=== PATIENT | male | born 1970 | race Caucasian/White ===

== ENCOUNTER 2025-02-01 13:06 | Inpatient (IN) | payer OTHER ==
[2025-02-01] MEDS ORDERED: Nitroglycerin 0.4 MG TAB 1 EACH ONE (15:08)
[2025-02-01 16:00] LABS: #Basophils 0.05 10x3/uL (0.0-0.2); #Eosinophils 0.24 10x3/uL (0.0-0.7); #Monocytes 0.78 10x3/uL (0.11-0.59); #Neutrophils 3.39 10x3/uL (1.40-6.50); %Basophils 0.8 % (0.0-1.0); %Eosinophils 4.0 % (0.0-10.0); %Lymphocytes 25.7 % (21.0-51.0); %Monocytes 13.0 % (0.0-10.0); %Neutrophils 56.3 % (42.0-75.0); Hematocrit 39.3 % (42.0-52.0); Hemoglobin 12.9 g/dL (14.0-18.0); Mean Corpuscular Hemoglobin 28.7 pg (27.0-31.0); Mean Corpuscular Volume 87.3 fL (78.0-98.0); Platelet Count 222 10x3/uL (130-400); Red Blood Cell (RBC) Count 4.50 mill/uL (4.70-6.10); White Blood Cell (WBC) Count 6.02 10x3/uL (4.8-10.8)
[2025-02-01 16:20] LABS: ALT (SGPT) 18 U/L (Less than 45); AST (SGOT) 28 U/L (11-34); Albumin 4.3 g/dL (3.1-4.5); Alkaline Phosphatase 75 U/L (40-110); Anion Gap 13 mmol/L (10-20); BUN (Urea Nitrogen) 21 mg/dL (8.4-25.7); Bilirubin, Total 0.5 mg/dL (0.3-1.2); Calc. Creatinine Clearance 0 mL/min (70-130); Calcium 9.2 mg/dL (7.8-10.44); Carbon Dioxide 23 mmol/L (22-29); Chloride 106 mmol/L (98-107); Globulin 3.0 g/dL (2.4-3.5); Glucose 91 mg/dL (70-105); Potassium 4.4 mmol/L (3.5-5.1); Sodium 138 mmol/L (136-145)
[2025-02-01] MEDS ORDERED: Melatonin 3 MG TAB PO PRN (17:37)
[2025-02-01] MEDS ORDERED: Acetaminophen 325 MG TAB PO PRN (17:37)
[2025-02-01 21:48] VITALS: BMI 24.7
[2025-02-01] MEDS: Famotidine 20 MG TAB PO SCH (22:03)
[2025-02-01] MEDS: Ketorolac Tromethamine 30 MG (1 mL) VIAL IVP SCH (22:27)
[2025-02-02] MEDS: Nitroglycerin 0.4 MG TAB (25 Tab Bottle) SL PRN (00:06)
[2025-02-02] MEDS: Nitroglycerin 2% Ointment 1 INCH/1 GM Packet TOP SCH ×2 (01:00→10:25)
[2025-02-02 04:51] LABS: Cardiac Risk 3.5 (Less than 4.5); Cholesterol 113.0 mg/dl (< 200 Desired); HDL Cholesterol 32.0 mg/dL (>60 Neg Risk); LDL Cholesterol, Calculated 55.0 mg/dL; Triglycerides 131.0 mg/dL (Less than 150)
[2025-02-02] MEDS ORDERED: Nitroglycerin 2% Ointment 1 INCH/1 GM Packet TOP SCH (09:00)
[2025-02-02] MEDS: Carvedilol 6.25 MG TAB PO SCH (11:54)
[2025-02-02] MEDS: FLU (Fluarix Triv) 25-26 (6MOS UP)/PF 45 MCG/0.5 ML Syringe IM ONE (11:54)
[2025-02-02] MEDS: Aspirin Chewable 81 MG TAB PO SCH (11:54)
[2025-02-02] MEDS: Isosorbide Mononitrate 30 MG ER.TAB.S PO SCH (14:13)
[2025-02-02] MEDS: Lisinopril 2.5 MG TAB PO SCH (14:53)
[2025-02-02] MEDS: Ketorolac Tromethamine 30 MG (1 mL) VIAL IVP SCH (21:49)
[2025-02-03 05:04] LABS: #Basophils 0.03 10x3/uL (0.0-0.2); #Eosinophils Less than 0.03 10x3/uL (0.0-0.7); #Monocytes 0.62 10x3/uL (0.11-0.59); #Neutrophils 3.11 10x3/uL (1.40-6.50); %Basophils 0.6 % (0.0-1.0); %Eosinophils 0.0 % (0.0-10.0); %Lymphocytes 23.7 % (21.0-51.0); %Monocytes 12.6 % (0.0-10.0); %Neutrophils 62.9 % (42.0-75.0); Hematocrit 34.7 % (42.0-52.0); Hemoglobin 11.2 g/dL (14.0-18.0); Mean Corpuscular Hemoglobin 28.7 pg (27.0-31.0); Mean Corpuscular Volume 89.0 fL (78.0-98.0); Platelet Count 158 10x3/uL (130-400); Red Blood Cell (RBC) Count 3.90 mill/uL (4.70-6.10); White Blood Cell (WBC) Count 4.94 10x3/uL (4.8-10.8)
[2025-02-03 05:17] LABS: Anion Gap 12 mmol/L (10-20); BUN (Urea Nitrogen) 21 mg/dL (8.4-25.7); Calc. Creatinine Clearance 85 mL/min (70-130); Calcium 8.7 mg/dL (7.8-10.44); Carbon Dioxide 26 mmol/L (22-29); Chloride 106 mmol/L (98-107); Glucose 113 mg/dL (70-105); Potassium 4.0 mmol/L (3.5-5.1); Sodium 140 mmol/L (136-145)
[2025-02-03] MEDS: Isosorbide Mononitrate 30 MG ER.TAB.S PO SCH (09:32)
[2025-02-03 11:49] VITALS: BP 115/70; TEMP 97.6
== END 2025-02-03 15:28 | DRG 313 ==
LOC: ERS 13:06 → EEVIPCON 13:06 → OBS 17:39 → OBSVTOIN 02-02 13:07
PROVIDERS: ADMIT Internal Medicine; ATTEND Internal Medicine
DX: R07.9 Chest pain, unspecified (principal); I25.10 Atherosclerotic heart disease of native coronary artery without angina pectoris; E78.5 Hyperlipidemia, unspecified; I10 Essential (primary) hypertension; D64.9 Anemia, unspecified; I48.0 Paroxysmal atrial fibrillation; Z86.73 Personal history of transient ischemic attack (TIA), and cerebral infarction without residual deficits; Z85.819 Personal history of malignant neoplasm of unspecified site of lip, oral cavity, and pharynx; Z98.890 Other specified postprocedural states; Z95.0 Presence of cardiac pacemaker; Z88.5 Allergy status to narcotic agent; Z88.0 Allergy status to penicillin; Z88.6 Allergy status to analgesic agent; Z79.899 Other long term (current) drug therapy; Z79.02 Long term (current) use of antithrombotics/antiplatelets; Z95.5 Presence of coronary angioplasty implant and graft; I25.2 Old myocardial infarction; Z23 Encounter for immunization
CPT/HCPCS: 36415; 71045; 78452; 80048; 80053; 80061; 83880; 84484; 85025; 93005; 93017; 94760; 96374; 96375; 96376; A9502; G0378; J1885; J2270; J2785; J3010